=== PATIENT | female | born 1970 | race Caucasian/White ===

== ENCOUNTER → 2020-10-19 | Day surgery (SDC) | payer BC, OTHER ==
[~2020-10-19] MED LIST: COLLAGEN PLUS1 EACH PO; DAILY MULTIPLE1 EAC1 PO
== END | disposition home or self-care (01) ==
LOC: OR 08:27
DX: S52.022A Displaced fracture of olecranon process without intraarticular extension of left ulna, initial encounter for closed fracture (principal); Z88.2 Allergy status to sulfonamides; Z79.899 Other long term (current) drug therapy; W00.0XXA Fall on same level due to ice and snow, initial encounter
CPT/HCPCS: 73080; 76000; 84703; C1713; J0690; J1100; J1170; J2001; J2250; J2405; J2704; J2710; J2795; J3010; J7120